=== PATIENT | male | born 1995 | race African-American/Black ===

== ENCOUNTER 2017-08-25 21:51 | Emergency (ER) | payer OTHER ==
[~2017-08-25] VITALS: Ht 185.4 cm; Wt 81.6 kg
--- NOTE | 2017-08-25 23:48 | RADIOLOGY REPORT ---
EXAMINATION: XR CHEST CLINICAL INFORMATION: Dyspnea COMPARISON: None TECHNIQUE: 2 views of the chest were obtained. FINDINGS: Scoliosis. Lung [place] are grossly clear. The heart size is normal. The hilar structures do not appear enlarged. There is no effusion. IMPRESSION: No acute finding.
[2017-08-26 00:11] LABS: ABSOLUTE BASOPHIL COUNT 0 /CUMM (0.0-0.2); ABSOLUTE EOSINOPHIL COUNT 2.8 /CUMM (0.0-0.7); ABSOLUTE MONOCYTE COUNT 0.9 /CUMM (0.10-0.60); BASOPHIL % 0.1 % (0.0-2.0); GRANULOCYTE % 50.8 % (42.2-75.2); HEMATOCRIT 47.2 % (42-52); MEAN CORPUSCULAR HGB 22.7 PG (27.0-31.0); MEAN CORPUSCULAR HGB CONC 32.6 G/DL (33.0-37.0); PLATELET COUNT 304 /CUMM (130-400); RBC DISTRIBUTION WIDTH 14.9 % (11.5-14.5); RED BLOOD CELL CT 6.78 /CUMM (4.70-6.10); WHITE BLOOD CELL COUNT 11.8 /CUMM (4.8-10.8)
[2017-08-26 00:33] LABS: MEAN CORPUSCULAR VOLUME 69.6 FL (80.0-94.0)
--- NOTE | 2017-08-26 01:11 | ED THROAT/DENTAL COMPLAINT ---
History of Present Illness General Chief Complaint: General Adult Stated Complaint: THROAT PAIN,NAUSEA, LOWER BACK PAIN Source: patient Exam Limitations: no limitations Vital Signs & Intake/Output Vital Signs & Intake/Output Vital Signs Date Time Temp Pulse Resp B/P B/P Pulse O2 O2 Flow FiO2 Mean Ox Delivery Rate 08/25 2215 98.4 66 16 120/67 97 Room Air ED Intake and Output 08/26 0000 08/25 1200 Intake Total Output Total Balance Patient 180 lb Weight Weight Reported by Patient Measurement Method Allergies Coded Allergies: MDX - EGGS (EGGS) (Mild, NAUSEA 01/14/11) Reconcile Medications Fluticasone Propionate (Flonase Allergy Relief) 50 MCG/ACTUATION SPRAY.SUSP 1 PUF NASB BID allergies Methylprednisolone. (Medrol) 4 MG TAB.DS.PK 1 DP PO AD PRN allergies 6 on day 1 then reduce by one tablet daily until gone Triage Note: PT PRESENTS TO THE ER C/O STOMACH PAIN AND BLOATING ONSET YESTERDAY. PT STATES THAT HE HAS LOWER BACK PAIN, NAUSEOUS AND THAT HE CANT EAT OR SLEEP. PT STATES THAT HIS THROAT ALSO HURTS. PT STATES THAT HIS PAIN IS A 5/10 AND GETS WORSE WHEN HE TAKES A BREATH.. PT DENIES ANY INJURY. Triage Nurses Notes Reviewed? yes Onset: Gradual Duration: day(s): Timing: recent history Injury Environment: home Severity: moderate HPI: 22yo male presents to ED complaining of sore throat and abdominal cramping beginning yesterday. Patient states that yesterday he was having generalized cramping and bloating sensation. Patient was also feeling nauseous. Patient was not able to eat anything today due to his nausea. Patient's last primary care doctor yesterday and was told he had a abnormal EKG and was referred to cardiology. Patient states he went to the converter operator the same day and was told that his EKG was normal. Patient reports intermittent dyspnea. Patient denies fevers, chills, diarrhea, rash, chest pain. (Kinjal Buckner) Past History Travel History Traveled to [place] past 21 day No Medical History Any Pertinent Medical History? none Surgical History Surgical History: N Psychosocial History What is your primary language Gambian Tobacco Use: Never used Family History Hx Contributory? No (Kinjal Buckner) Review of Systems Review of Systems Constitutional: Reports: no symptoms. EENTM: Reports: see HPI. Respiratory: Reports: see HPI. Cardiovascular: Reports: no symptoms. GI: Reports: see HPI. Genitourinary: Reports: no symptoms. Musculoskeletal: Reports: no symptoms. Skin: Reports: no symptoms. Neurological/Psychological: Reports: no symptoms. Hematologic/Endocrine: Reports: no symptoms. Immunologic/Allergic: Reports: no symptoms. All Other Systems: Reviewed and Negative (Niru SOTELO,Kinjal Martinez) Physical Exam Physical Exam General Appearance: well developed/nourished, no apparent distress, alert, awake Head: atraumatic, normal appearance Eyes: Bilateral: normal appearance. Nose: normal inspection Mouth/Throat: normal mouth inspection, pharynx normal Neck: normal inspection, supple, full range of motion Cardiovascular/Respiratory: normal breath sounds, normal peripheral pulses, regular rate/rhythm, no respiratory distress Gastrointestinal: soft, normal bowel sounds, MILD left sided tenderness without gaurding Back: normal inspection, normal range of motion Neurologic/Psych: awake, alert, oriented x 3 Skin: intact, normal color, warm/dry Core Measures ACS in differential dx? No Sepsis Present: No Sepsis Focused Exam Completed? No (Niru SOTELO,Kinjal Martinez) Progress Differential Diagnosis: alan-tonsillar abscess, strep pharyngitis, appendicitis, colitis, diverticulitis, gastroenteritis, allergies Plan of Care: Orders Procedure Date/time Status THROAT CULTURE W/QUICK STREP 08/25 2318 Active LIPASE 08/25 2318 Complete COMPREHENSIVE METABOLIC PANEL 08/25 2318 Complete CBC WITHOUT DIFFERENTIAL 08/25 2318 Complete Laboratory Tests 08/25/17 2340: Anion Gap 13, Estimated GFR > 60, BUN/Creatinine Ratio 17.0, Glucose 94, Calcium 10.0, Total Bilirubin 0.9, AST 20, ALT 21, Alkaline Phosphatase 73, Total Protein 7.9, Albumin 4.6, Globulin 3.3, Albumin/Globulin Ratio 1.4, Lipase 45, CBC w Diff NO MAN DIFF REQ, RBC 6.78 H, MCV 69.6 L, MCH 22.7 L, MCHC 32.6 L, RDW 14.9 H, MPV 8.0, Gran % 50.8, Lymphocytes % 17.1 L, Monocytes % 8.0, Eosinophils % 24.0 H, Basophils % 0.1, Absolute Granulocytes 6.0, Absolute Lymphocytes 2.0, Absolute Monocytes 0.9 H, Absolute Eosinophils 2.8, Absolute Basophils 0 Patient has elevated eosinophils on his CBC. Patient reports a history of seasonal allergies. Eosinophilia may be related to allergic symptoms and recent seasonal allergies. Patient in no acute distress, vital signs are stable, he is comfortable. Chest x-ray is within normal limits. Patient has very mild left- sided tenderness on physical exam, no McBurney's point tenderness, no right lower quadrant tenderness, last feeding sign is negative, suspicion for acute appendicitis at this time. Patient was given risks versus benefits to obtaining CT scan of his abdomen given his current symptoms however agrees with plan for observation. He was given strict return precautions for worsening symptoms or further abdominal pain to return to the emergency department for further workup. Patient understands and agrees with the plan of care. Patient was started on course of steroids and nasal spray for his allergy symptoms. The patient was discussed with Dr. Friedman who agrees with this plan. Diagnostic Imaging: Viewed by Me: Radiology Read. Discussed w/RAD: Radiology Read. Radiology Impression: PATIENT: ELINOR SARAH PRESENT AGE: 22 PATIENT ACCOUNT NO: [id number] : 94 LOCATION: [facility] ORDERING PHYSICIAN: Kinjal SOTELO SERVICE DATE: 08/25/17 EXAM TYPE: RAD - XRY-CHEST XRAY, TWO VIEWS EXAMINATION: XR CHEST CLINICAL INFORMATION : Dyspnea COMPARISON: None TECHNIQUE: 2 views of the chest were obtained. FINDINGS: Scoliosis. Lung [place] are grossly clear. The heart size is normal. The hilar structures do not appear enlarged. There is no effusion. IMPRESSION: No acute finding. DICTATED BY: Des Beltran MD DATE/TIME DICTATED:08/25/172342 FINISHING RANGE SUPERVISOR:LARISA DATE/TIME TRANSCRIBED:08/25/172342 CONFIDENTIAL, DO NOT COPY WITHOUT APPROPRIATE AUTHORIZATION. <Electronically signed in Other Vendor System> SIGNED BY: Des Beltran MD 08/25/172347 (Kinjal Buckner) Departure Departure Disposition: HOME OR SELF CARE Condition: Stable Clinical Impression Primary Impression: Sore throat Secondary Impressions: Seasonal allergies Referrals: Angelo Stephens MD (PCP/Family) Additional Instructions: Begin steroid pack tomorrow. Take full course of steroids. Use Flonase as prescribed. Follow-up with your primary care doctor. Return with any worsening symptoms or concerns especially increasing abdominal pain or right-sided abdominal pain, high fevers, vomiting. Please note that there might be incidental findings in your evaluation that are unrelated to the current emergency department visit. Please notify your primary care doctor about this emergency department visit in order to obtain and review all of the testing performed so that these incidental findings can be monitored as needed. If you had an x-ray performed, please understand that some fractures may not be seen on the initial set of x-rays. If your symptoms persist you might need a repeat set of x-rays to check for such a fracture. If you had a laceration evaluated, please understand that foreign bodies such as glass or wood may not be visible to the naked eye or on plain x-rays. If the wound becomes red, swollen, increasingly more painful or if there is any drainage from the wound, please have it reevaluated by a physician for the possibility of a retained foreign body. If you're unable to follow up as outlined in the discharge instructions please return to the emergency department. Thank you for choosing the [facility] Emergency Department for your care. It was a pleasure to serve you today. Departure Forms: Customer Survey General Discharge Information Prescriptions: Current Visit Scripts Fluticasone Propionate (Flonase Allergy Relief) 1 PUF NASB BID #1 BOT Methylprednisolone. (Medrol) 1 DP PO AD PRN allergies #1 DP 6 on day 1 then reduce by one tablet daily until gone (Niru SOTELO,Kinjal Martinez) PA/VETERINARY BACTERIOLOGIST Co-Sign Statement Statement: ED Attending supervision documentation- I saw and evaluated the patient. I have also reviewed all the pertinent lab results and diagnostic results. I agree with the findings and the plan of care as documented in the PA's/VETERINARY BACTERIOLOGIST's documentation. x I have reviewed the ED Record and agree with the PA's/VETERINARY BACTERIOLOGIST's documentation. [] Additions or exceptions (if any) to the PAs/VETERINARY BACTERIOLOGIST's note and plan are summarized below: [] (Idalia MUNOZ,Arben)
[2017-08-26] MEDS ORDERED: FLONASE ALLERG9.9 ML NASB (01:16)
[2017-08-26] MEDS ORDERED: MEDROL4 M2 PO (01:16)
[2017-08-26 01:19] VITALS: BP 122/72
== END 2017-08-26 01:26 ==
LOC: ERH 21:51
PROVIDERS: Physician Assistant
DX: J02.9 Acute pharyngitis, unspecified (principal); J30.2 Other seasonal allergic rhinitis
CPT/HCPCS: 71046